=== PATIENT | female | born 1950 | race Caucasian/White ===

== ENCOUNTER 2021-12-22 17:03 | Emergency (ER) | payer MEDICARE, BC, SELFPAY ==
[2021-12-22 17:26] VITALS: BP 157/93; PULSE 63; RESP 17; TEMP 36.7; O2SAT 99; BMI 24.3
--- NOTE | 2021-12-22 17:54 | HMH.EDUTC ---
[facility] [place] Clinical Impression: Low back pain with radiation Sciatica Qualifiers: Laterality: right Qualified Code(s): M54.31 - Sciatica, right side Disposition: Home, Self-Care Condition on Discharge: Good Additional Instructions: Go home and rest. It would be best if you rested tomorrow too. No heavy lifting. No twisting. Take the oral medications as directed. The muscle relaxer (cyclobenzaprine--Flexeril) will make you drowsy, so don't drive or operate heavy machinery after taking it. Don't take it with the skelaxin that you already have if you have anymore of that. Both together would make you too drowsy and be very risky of falling. Don't start the oral steroids (medrol dose pack) until tomorrow, since you had the shots in here today. Follow up with your regular doctor. GO TO THE ER FOR ANY WORSENING SYMPTOMS OR CONCERN, ESPECIALLY BOWEL OR BLADDER ISSUES, SADDLE AREA NUMBNESS, FEVER, ETC Prescriptions: Cyclobenzaprine HCl [Cyclobenzaprine 10mg Tab] 10 mg PO BIDP PRN #20 tab PRN Reason: Muscle Spasm Transmission Status: Received by [id number] methylPREDNISolone [Medrol] 4 mg PO DIRECTED 6 Days #21 packet Transmission Status: Received by [id number] Referrals: Lisa Bagley [Primary Care Provider] - Time of Disposition: 18:25 Medical Decision Making - Medical Records Medical records reviewed: No: I reviewed the patient's medical records. - Liborio Inquiry Pt receiving controlled substance: No Vital Signs: 12/22/21 17:26 12/22/21 18:30 Temperature 98.0 F 98.0 F Temperature Source Oral Pulse Rate 63 Pulse Rate [Left Radial] 63 Respiratory Rate 17 17 Blood Pressure 157/93 H Blood Pressure [Right Arm] 157/93 H Blood Pressure Mean [Right Arm] 114 02 Sat by Pulse Oximetry 99 Orders (Tests/Meds): ED MEDICATIONS Discontinued Medications Generic Name Dose Route Start Last Admin Trade Name Freq PRN Reason Stop Dose Admin Ketorolac Tromethamine 60 mg 12/22/21 18:03 12/22/21 18:19 Ketorolac 60mg/2ml Vial IM 12/22/21 18:04 60 mg ONCE ONE Administration Methylprednisolone Sodium Succinate 125 mg 12/22/21 18:03 06/18/22 18:18 Methylprednisolone Sod Succ 125mg Vial IM 12/22/21 18:04 125 mg ONCE ONE Administration [facility] [place] - General Stated complaint: pain lower back Time Seen by Provider: 12/22/21 17:54 Description of Symptoms (Recalled from Triage Doc. by RN): patient comes in with complaints of lower back pain. patient was seen at [facility] last week for same issues. patient states that the pain is not getting better. HEENT Symptoms (Recalled from RN notes): No Resp Symptoms (Recalled from RN notes): No Skin Symptoms (Recalled from RN notes): No MS Symptoms (Recalled from RN notes): Yes Functional Status (Recalled from RN notes): wnl - History of Present Illness Provider Complaint: she states that she is having right sided lower back pain that radiates down her right leg. She denies any fall or trauma. She has a history of sciatica, but it is usually not this severe. She was having simialar symptoms about 10 days ago. She went to the ER at [facility] and was presribed steroids and valium and it helped her pain. She is out of the valium. She finished the steroids around 4 days ago. That is when her symptoms began to return. She denies any fever/chills and bowel or bladder issues. - Related Data Home Medications Medication Instructions Recorded Confirmed Atorvastatin Calcium [Atorvastatin 10 mg PO HS 05/21/19 05/21/19 10mg Tab] Enoxaparin Sodium [Lovenox 0.4 ml SQ DAILY 05/21/19 05/21/19 40mg/0.4mL syringe] Hydrocodone/Acetaminophen 1 each PO Q6 05/21/19 05/21/19 [Hydrocodone-Acetamin 5-325 mg] Levothyroxine Sodium [Synthroid 1 tab PO DAILY 05/21/19 05/21/19 150mcg (0.15mg) tablet] Previous Rx's Medication Instructions Recorded Sennosides [Senna] 2 tab PO HS #14 tab 11
[2021-12-22 18:30] VITALS: BP 157/93; PULSE 63; RESP 17; TEMP 36.7
== END 2021-12-22 18:36 | disposition home or self-care (01) ==
PROVIDERS: Emergency Provider Nurse Practitioner Family; PCP Internal Medicine
DX: M54.16 Radiculopathy, lumbar region (principal); Z87.39 Personal history of other diseases of the musculoskeletal system and connective tissue; Z79.52 Long term (current) use of systemic steroids; Z79.899 Other long term (current) drug therapy
CPT/HCPCS: 96372; 99213; G0463